=== PATIENT | male | born 1980 | race Caucasian/White ===

== ENCOUNTER 2017-09-06 17:54 | Emergency (ER) | payer SELFPAY ==
[~2017-09-06] VITALS: Ht 175.3 cm; Wt 90.7 kg
--- NOTE | 2017-09-06 18:05 | NUR ---
BBRA FROM STREET: HEROIN WITHDRAWAL. LAST TIME USED YESTERDAY. C/O GENERALIZED BODY PAIN. AGITATED, IRRITABLE. BREATHING EVEN AND UNLABORED. NO SOB, NAD, VITALS STABLE. SAFETY AND COMFORT MEASURES IN PLACE. AWAITING MD ORDERS.
[2017-09-06] MEDS ORDERED: OLANZAPINE 10 MG VIAL IM ONE ×2 (18:20→18:30)
[2017-09-06] MEDS ORDERED: LORAZEPAM INJ 2 MG/ML VIAL ONE ×2 (18:21→18:53)
[2017-09-06] MEDS ORDERED: LORAZEPAM INJ 2 MG/ML VIAL IM ONE ×3 (18:30→19:00)
[2017-09-06 18:48] LABS: BASOPHILS % (AUTO) 0.3 % (0.0-2.0); EOSINOPHILS % (AUTO) 0.8 % (0.0-6.0); HEMATOCRIT 45 % (39-51); HEMOGLOBIN 14.9 g/dL (13.5-17.5); LYMPHOCYTES # (AUTO) 3.2 /CMM (0.8-4.8); LYMPHOCYTES % (AUTO) 48.3 % (20.0-44.0); MEAN CORPUSCULAR HEMOGLOBIN 32 PG (26.0-33.0); MEAN CORPUSCULAR HGB CONC 33 g/dl (31.0-36.0); MEAN CORPUSCULAR VOLUME 97 fL (80-96); MONOCYTES # (AUTO) 0.4 /CMM (0.1-1.30); MONOCYTES % (AUTO) 5.3 % (2.0-12.0); NEUTROPHILS # (AUTO) 3.1 /CMM (1.8-8.9); NEUTROPHILS % (AUTO) 45.3 % (43.0-81.0); PLATELET COUNT (AUTO) 234 /CMM (150-450); RDW COEFFICIENT OF VARIATION 12.7 (11.5-15.0); RED BLOOD CELL COUNT(AUTO) 4.63 MIL/uL (4.5-6.0); WHITE BLOOD COUNT (AUTO) 6.8 K/uL (4.3-11.0)
[2017-09-06 18:57] LABS: CALCIUM, SERUM 8.5 mg/dL (8.5-10.1); CREATININE 0.3 mg/dL (0.6-1.3); POTASSIUM 3.7 mmol/L (3.5-5.1)
[2017-09-06 19:03] LABS: ALBUMIN 2.9 g/dL (3.4-5.0); BILIRUBIN,DIRECT 0.2 mg/dL (0.0-0.2); BILIRUBIN,TOTAL 0.4 mg/dL (0.2-1.0); TOTAL PROTEIN, SERUM 6.9 g/dL (6.4-8.2)
--- NOTE | 2017-09-06 19:58 | NUR ---
ASSUMED CARE OF PT AT THIS TIME. PT NOTED YELLING. ALREADY SEDATED PER PRIMARY NURSE. ATTEMPTED TO REORIENT PT AND PLACED IN CLOSE ROOM NECT TO NURSES' STATION. ALL NEEDS MET. DENIES ANY MEDICAL SX'S AT THIS TIME. PLACED ON MONITOR AND CALL LIGHT GIVEN.
--- NOTE | 2017-09-06 21:31 | NUR ---
URINE COLLECTED VIA I&O. PT STILL ON MONITOR.
[2017-09-06 22:33] LABS: APPEARANCE,URINE CLEAR (CLEAR); BILIRUBIN,URINE NEGATIVE (NEGATIVE); BLOOD, URINE NEGATIVE Ery/uL (NEGATIVE); COLOR,URINE OTHER (YELLOW); KETONES,URINE NEGATIVE (NEGATIVE); LEUKOCYTE ESTERASE ,URINE NEGATIVE (NEGATIVE); NITRITE, URINE NEGATIVE (NEGATIVE); PROTEIN,URINE NEGATIVE (NEGATIVE); UGLUCOSE NEGATIVE (NEGATIVE); UROBILINOGEN,URINE 0.2 EU/dL (0.2)
--- NOTE | 2017-09-06 22:45 | NUR ---
RESTING WITH EYES CLOSED WITH NO S/S OF DISTRESS. RESP EVEN AND UNLABORED. STILL ON MONITOR.
--- NOTE | 2017-09-07 00:14 | NUR ---
LYING LT SIDE, SLOWLY AROUSABLE. NO S/S OF DISTRESS NOTED. ON MONITOR. RESP EVEN AND UNLABORED.
--- NOTE | 2017-09-07 02:03 | NUR ---
LYING RT SIDE AT THIS TIME. NO S/S OF DISTRESS NOTED AT THIS TIME. RESP EVEN AND UNLABORED.
--- NOTE | 2017-09-07 03:34 | NUR ---
RESTING SUPINE WITH NO S/S OF DISTRESS. STILL ON MONITOR. RESP EVEN AND UNLABORED.
--- NOTE | 2017-09-07 04:45 | NUR ---
AWAKE AND GIVEN WATER WITH ICE REQUESTED. DENIES SI/HI OR ANY OTHER ACUTE SX'S AT THIS TIME. RESP EVEN AND UNLABORED. AMBULATED TO RESTROOM WITH STEADY GAIT.
[2017-09-07 05:15] VITALS: BP 128/83
--- NOTE | 2017-09-07 05:15 | NUR ---
Patient discharged to home in stable condition. Written and verbal after care instructions given. Patient verbalizes understanding of instruction. Ambulatory with a steady gait
--- NOTE | 2017-09-07 05:18 | NUR ---
UNABLE TO PRESS DEPART PT AT THIS TIME. IT'S IN VAZ.
== END 2017-09-07 05:15 | disposition home or self-care (01) ==
LOC: ER 17:56
DX: F10.129 Alcohol abuse with intoxication, unspecified (principal); R45.1 Restlessness and agitation; F11.23 Opioid dependence with withdrawal; Y90.8 Blood alcohol level of 240 mg/100 ml or more
CPT/HCPCS: 36415; 80048-TC; 80076-TC; 80305; 81000-TC; 85025-TC; A4606; G0480; J2060; J3490; Z7610